=== PATIENT | male | born 1990 | race Caucasian/White ===

== ENCOUNTER 2017-07-19 13:21 | Emergency (ER) | END 2017-07-19 15:18 | disposition home or self-care (01) ==

== ENCOUNTER 2018-04-04 09:49 | Emergency (ER) | END 2018-04-04 10:58 | disposition home or self-care (01) ==

== ENCOUNTER 2018-04-26 10:29 | Emergency (ER) | payer OTHER ==
[~2018-04-26] VITALS: Wt 60.1 kg
[~2018-04-26 10:29] MED LIST: BENZ-6 PO; CLIN300C10 PO; DOXY100T20 PO; GUAI-637 PO; OXYM30MI NASAL; PSEU-79 PO
[2018-04-26 10:34] VITALS: BP 111/60; PULSE 78; RESP 18
[2018-04-26] MEDS ORDERED: D-ME118S24 PO (13:07)
[2018-04-26] MEDS ORDERED: IBUP-1561 PO (13:07)
[2018-04-26] MEDS ORDERED: SODI30SP2 NS (13:07)
--- NOTE | 2018-04-26 13:10 | ERD ---
ER Documentation Chief Complaint Chief Complaint COUGH AND CONGESTION X 2 WEEKS HPI 28-year-old male presents for cough and congestion times 2 weeks. He states that the cough is dry and productive at times. He knows. Denies fevers or chills. He has not tried any medications. He denies chest pain or shortness o f breath. Denies abdominal pain, nausea, vomiting. ROS All systems reviewed and are negative except as per history of present illness. Medications Home Meds Active Scripts Sodium Chloride (Saline Nasal Stow) 30 Ml Stow, 30 ML NS BID PRN for NASAL CONGESTION, #1 BOTTLE Prov:CASTROPATRIZIA 04/26/18 Ibuprofen* (Motrin*) 400 Mg Tab, 400 MG PO Q6H PRN for PAIN AND OR ELEVATED TEMP, #30 TAB Prov:GLORIAPATRIZIA 04/26/18 D-Methorphan Hb/P-Epd HCl/Bpm (Jgjhdbzscm-Bwbsbkxctug-Br Syr) 118 Ml Syrup, 5 ML PO Q4H PRN for COUGH, #1 BOTTLE Prov:GLORIAPATRIZIA JACOBO 04/26/18 Oxymetazoline Hcl (Nasal Stow) 30 Ml Mist, 2 SPRAYS NASAL BID, #1 BOTTLE Prov:COLLEEN MCPHERSON PA-C 04/04/18 Benzonatate* (Tessalon Perle*) 100 Mg Capsule, 100 MG PO Q8H PRN for COUGH, #30 CAP Prov:COLLEEN MCPHERSON PA-C 04/04/18 Guaifenesin* (Robitussin*) 100 Mg/5 Ml Syrup, 100 MG PO Q4H PRN for COUGH, #100 ML Prov:COLLEEN MCPHERSON PA-C 04/04/18 Pseudoephedrine Hcl* (Suphedrin*) 30 Mg Tablet, 30 MG PO Q6 PRN for CONGESTION, #30 TAB Prov:COLLEEN MCPHERSON PA-C 04/04/18 Clindamycin Hcl* (Clindamycin Hcl*) 300 Mg Capsule, 300 MG PO TID for 7 Days, CAP Prov:BERE GRANGER PA-C 07/19/17 Doxycycline Hyclate* (Doxycycline Hyclate*) 100 Mg Tablet.dr, 100 MG PO BID for 7 Days, TAB Prov:BERE GRANGER PA-C 07/19/17 Allergies Allergies: Coded Allergies: Penicillins (Verified Allergy, Unknown, THROAT SWELLING, 04/04/18) codeine (Verified Allergy, Unknown, RASH, 04/04/18) PMhx/Soc Hx Respiratory Disorders: Yes (bronchitis) Hx Alcohol Use: No Hx Substance Use: No Hx Tobacco Use: No Smoking Status: Never smoker Physical Exam Vitals Vital Signs Date Temp Pulse Resp B/P (MAP) Pulse Ox O2 O2 Flow FiO2 Time Delivery Rate 04/26/18 98.1 78 18 111/60 99 10:34 (77) Physical Exam Const: No acute distress Head: Atraumatic Eyes: Normal Conjunctiva ENT: Tympanic membrane intact bilaterally, no bulging TM, no erythema noted, nasal mucosa moist without erythema, moderate nasal congestion, oral mucosa without erythema, no tonsillar exudates. Neck: Full range of motion. No meningismus. Resp: Clear to auscultation bilaterally, no wheezing Cardio: Regular rate and rhythm, no murmurs Skin: No petechiae or rashes Ext: No cyanosis, or edema Neur: Awake and alert Psych: Normal Mood and Affect Procedures/MDM Medical Decision Making: Differential diagnosis includes but not limited to upper respiratory infection, pneumonia, sepsis. Patient appeared well on physical examination, nontoxic appearing. Lungs were clear to auscultation bilaterally. There is low suspicion for pneumonia, sepsis. Patient likely has an upper respiratory infection, likely viral. Discussed symptomatic treatment with patient who agrees with plan. Patient given prescription for supportive medications. Patient advised to follow up with PCP in 1-2 days. Patient advised to return to ED for new or worsening symptoms. Patient stable on discharge from the ED. Disclaimer: Inadvertent spelling and grammatical errors are likely due to EHR/dictation software use and do not reflect on the overall quality of patient care. Also, please note that the electronic time recorded on this note does not necessarily reflect the actual time of the patient encounter. Departure Diagnosis: Primary Impression: URI (upper respiratory infection) URI type: unspecified URI Qualified Codes: J06.9 - Acute upper respiratory infection, unspecified Condition: Fair Patient Instructions: Preventing Common Respiratory Infections Referrals: COMMUNITY CLINICS YOU HAVE RECEIVED A MEDICAL SCREENING EXAM AND THE RESULTS INDICATE THAT YOU DO NOT HAVE A CONDITION THAT REQUIRES URGENT TREATMENT IN THE EMERGENCY DEPARTMENT. FURTHER EVALUATION AND TREATMENT OF YOUR CONDITION CAN WAIT UNTIL YOU ARE SEEN IN YOUR DOCTORS OFFICE WITHIN THE NEXT 1-2 DAYS. IT IS YOUR RESPONSIBILITY TO MAKE AN APPOINTMENT FOR FOLOW-UP CARE. IF YOU HAVE A PRIMARY DOCTOR --you should call your primary doctor and schedule an appointment IF YOU DO NOT HAVE A PRIMARY DOCTOR YOU CAN CALL OUR PHYSICIAN REFERRAL HOTLINE AT IF YOU CAN NOT AFFORD TO SEE A PHYSICIAN YOU CAN CHOSE FROM THE FOLLOWING [facility] [address] [facility] [address] [facility] [facility] [address] [facility] [address] [facility] [facility] [address] [facility] [facility]. [address] Additional Instructions: Call your primary care doctor TOMORROW for an appointment during the next 1-2 days.See the doctor sooner or return here if your condition worsens before your appointment time. PATRIZIA CASTRO DO Apr 26, 2018 13:10
== END 2018-04-26 13:37 | disposition home or self-care (01) ==
LOC: FTE 10:29
DX: J06.9 Acute upper respiratory infection, unspecified (principal)
CPT/HCPCS: 99282